=== PATIENT | male | born 1940 | race Caucasian/White ===

== ENCOUNTER 2020-01-01 09:18 | Outpatient (REF) | payer MEDICARE, SELFPAY ==
[2020-01-01 11:31] LABS: Cholesterol 175 mg/dL; HDL Cholesterol 60 mg/dL; LDL Cholesterol Calculated 90 mg/dl; Triglycerides 127 mg/dL
[2020-01-01 13:37] LABS: Thyroid Stimulating Hormone 4.21 uIU/mL (0.32-4.0)
== END 2020-01-01 09:19 | disposition home or self-care (01) ==
LOC: HO.HMGCLDS 09:18
PROVIDERS: PCP Internal Medicine; Visit Provider Internal Medicine
DX: E03.9 Hypothyroidism, unspecified (principal)
CPT/HCPCS: 80061; 84443

== ENCOUNTER 2020-03-17 11:13 | Outpatient (REF) | payer MEDICARE, SELFPAY ==
--- NOTE | 2020-03-19 13:10 | MHC.AU.P13 ---
Adult Audiological Evaluation Date of Visit: 03/17/20 Package Handler Used: Not Applicable Reason for Appointment: Audiologic re-evaluation due to perceived change in hearing, particularly for the left ear. 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, with the left ear thresholds being poorer with conductive components noted Ear History: Bothersome Tinnitus/Ringing/Noises in Ears: Both Ears History of occupational noise exposure?: Yes Medical History: Medical History: Thyroid Disease Other Medical History: High cholesterol History of fluctuating middle ear dysfunction Medication List: Levothyroxine, Simvastatin Hearing Instrument History- Right Ear: Structural Steel Equipment Erector: [employer] Model: Appotao V 70-312 canal Serial Number: [id number] Battery Size: 312 Repair Warranty: 02/25/2019 Loss and Damage Warranty: 02/25/2019 Dispensed By: [facility] Date of Fittin02/03/2016 Hearing Instrument History- Left Ear: Structural Steel Equipment Erector: Phonak Model: Appotao V 70-312 canal Serial Number: [id number] Battery Size: 312 Warranty: 02/25/2019 Loss and Damage Warranty: 02/25/2019 Dispensed By: [facility] Date of Fittin02/03/2016 Otoscopy: Right Ear: Unremarkable Left Ear: Unremarkable Tympanometry: Tympanometry performed due to: History of fluctuating middle ear dysfunction, left ear greater than right Right Ear: Non-compliant Middle Ear System (Type B) Left Ear: Non-compliant Middle Ear System (Type B) Hearing Evaluation: Transducer(s) Used: Insert Earphones Bone Conduction Method: Conventional Audiometry Stimuli Used: Pure Tones Right Ear: Description of Hearing: Moderate dropping to profound sensorineural hearing loss Left Ear: Description of Hearing: 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 Middle ear dysfunction persists bilaterally. Compared to most recent evaluation: Interpretation of Results: Recommendations: Audiological re-evaluation in one year. Hearing aid(s) reprogrammed with updated test results. Diagnosis: Primary Diagnosis: H90.3 Bilateral Sensorineural Hearing Loss Secondary Diagnosis: H69.93 Unspecified Eustachian Tube Dysfunction, Bilateral Services Performed: Comprehensive Audiological Evaluation (CPT 09688) Tympanometry (CPT 65733) Signature: Student/Clinical Fellow: I have reviewed/agreed with student/fellow documentation: Provider: Italo Kruger, CCC-A
--- NOTE | 2020-03-19 13:16 | MHC.AU.P13 ---
Adult Audiological Evaluation Date of Visit: 03/17/20 Notch Machine Operator Used: Not Applicable Reason for Appointment: Audiologic re-evaluation due to perceived change in hearing, particularly for the left ear. 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, with the left ear thresholds being poorer with conductive components noted Ear History: Bothersome Tinnitus/Ringing/Noises in Ears: Both Ears History of occupational noise exposure?: Yes Medical History: Medical History: Thyroid Disease Other Medical History: High cholesterol History of fluctuating middle ear dysfunction, left ear greater than right Medication List: Levothyroxine, Simvastatin Hearing Instrument History- Right Ear: Jewel Oliving Machine Operator: Phonak Model: tamycao V 70-312 canal Serial Number: [id number] Battery Size: 312 Repair Warranty: 02/25/2019 Loss and Damage Warranty: 02/25/2019 Dispensed By: [facility] Date of Fittin02/03/2016 Hearing Instrument History- Left Ear: Jewel Oliving Machine Operator: Phonak Model: tamycao V 70-312 canal Serial Number: [id number] Battery Size: 312 Warranty: 02/25/2019 Loss and Damage Warranty: 02/25/2019 Dispensed By: [facility] Date of Fittin02/03/2016 Otoscopy: Right Ear: Unremarkable Left Ear: Unremarkable Tympanometry: Tympanometry performed due to: Hsitory of fluctuating middle ear dysfunction, left ear greater than right Right Ear: Non-compliant Middle Ear System (Type B) Left Ear: Non-compliant Middle Ear System (Type B) Hearing Evaluation: Transducer(s) Used: Insert Earphones Bone Conduction Method: Conventional Audiometry Stimuli Used: Pure Tones Right Ear: Description of Hearing: Moderate dropping to profound sensorineural hearing loss Left Ear: Description of Hearing: 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 Middle ear dysfunction persists bilaterally. Compared to most recent evaluation: Question if the continued middle ear dysfunction may relate to the increased hearing loss. Recommendations: Audiological re-evaluation in one year. Hearing aid(s) reprogrammed with updated test results. Diagnosis: Primary Diagnosis: H90.3 Bilateral Sensorineural Hearing Loss Secondary Diagnosis: H69.93 Unspecified Eustachian Tube Dysfunction, Bilateral Services Performed: Comprehensive Audiological Evaluation (CPT 99484) Tympanometry (CPT 33369) Signature: Provider: Italo Kruger, [place]-A
== END 2020-03-17 11:14 | disposition home or self-care (01) ==
LOC: HO.SH 11:13
PROVIDERS: Visit Provider Internal Medicine
DX: H90.3 Sensorineural hearing loss, bilateral (principal); H69.93 Unspecified Eustachian tube disorder, bilateral
CPT/HCPCS: 92557; 92567

== ENCOUNTER 2020-05-04 09:51 | Outpatient (REF) | payer MEDICARE, SELFPAY ==
[2020-05-04 11:56] LABS: Cholesterol 168 mg/dL; HDL Cholesterol 56 mg/dL; LDL Cholesterol Calculated 77 mg/dl; Triglycerides 179 mg/dL
[2020-05-04 12:18] LABS: Thyroid Stimulating Hormone 2.12 uIU/mL (0.32-4.0)
== END 2020-05-04 09:52 | disposition home or self-care (01) ==
LOC: HO.HMGCLDS 09:51
PROVIDERS: PCP Internal Medicine; Visit Provider Internal Medicine
DX: E11.9 Type 2 diabetes mellitus without complications (principal); E03.9 Hypothyroidism, unspecified
CPT/HCPCS: 36415; 80061; 84443

== ENCOUNTER 2020-06-18 10:58 | Outpatient (REF) | payer SELFPAY ==
--- NOTE | 2020-06-18 11:35 | MHC.AU.P13 ---
Hearing Instrument Problem Date of Visit: 06/18/20 Right Ear: Head Doffer: Phonak Model: Virto V 70-312 canal Serial Number: [id number] Repair Warranty: 02/25/2019 Loss and Damage Warranty: 02/25/2019 Battery Size: 312 Color: pink Type of Wax Guard: CeruStop Left Ear: Head Doffer: Phonak Model: Virto V 70-312 canal Serial Number: [id number] Repair Warranty: 02/25/2019 Loss and Damage Warranty: 02/25/2019 Battery Size: 312 Color: pink Type of Wax Guard: CeruStop Follow-Up Summary: Patient brought in left aid - feels not enough volume. Cleaned and replaced wax guard, however, aid is still very weak. Sending to [employer] for repair. Quoted $315.00 Recommendations: Recommendations: Patient will be contacted when materials have arrived. Signature: Provider: MK Calhoun-
== END 2020-06-18 10:59 | disposition home or self-care (01) ==
LOC: HO.HAP 10:58
PROVIDERS: Visit Provider Internal Medicine
DX: Z13.89 Encounter for screening for other disorder (principal)

== ENCOUNTER 2020-06-29 14:38 | Outpatient (REF) | payer MEDICARE, SELFPAY | END 2020-06-29 14:39 | disposition home or self-care (01) | LOC: HO.HAP 14:38 | PROVIDERS: Visit Provider Internal Medicine | DX: Z46.1 Encounter for fitting and adjustment of hearing aid (principal); H90.3 Sensorineural hearing loss, bilateral | CPT/HCPCS: V5014 ==

== ENCOUNTER 2020-10-07 09:05 | Outpatient (REF) | payer MEDICARE, SELFPAY ==
[2020-10-07 11:02] LABS: MANUAL DIFF FLAG NO
[2020-10-07 11:25] LABS: Basophils Percent Auto 0.5 % (0-2); Eosinophils Absolute Auto 0.3 X10*3/uL (0.0-0.4); Eosinophils Percent Auto 3.4 % (0-4); Hematocrit 41.1 % (42-52); Hemoglobin 13.5 g/dl (14.0-18.0); Imm Gran Abs Auto 0.01 X10*3/uL (0.00-0.03); Imm Gran Pct Auto 0.1 % (0.0-0.4); Lymphocytes Absolute Auto 3.3 X10*3/uL (1.2-4.9); Lymphocytes Percent Auto 44.7 % (20-40); Mean Corpuscular HGB Conc 32.8 g/dl (31.0-36.0); Mean Corpuscular Hemoglobin 31.2 pg (27.0-33.0); Mean Corpuscular Volume 94.9 fL (80-98); Mean Platelet Volume 10.7 fL (9.4-12.4); Monocytes Absolute Auto 0.6 X10*3/uL (0.1-1.2); Monocytes Percent Auto 8.1 % (2-11); Neutrophils Absolute Auto 3.2 X10*3/uL (2.0-8.3); Neutrophils Percent Auto 43.2 % (45-73); Platelet Count 187 X10*3/uL (160-400); Red Blood Count 4.33 X10*6/uL (4.60-5.80); Red Cell Distribution Width 12.3 % (11.0-16.0); White Blood Count 7.4 X10*3/uL (4.8-10.8)
[2020-10-07 12:19] LABS: Alanine Aminotransferase 25 U/L (0-40); Albumin Level 4.6 g/dL (3.5-5.0); Alkaline Phosphatase 80 U/L (39-117); Anion Gap 16 (12-20); Aspartate Amino Transferase 22 U/L (5-37); Bilirubin Total 1.3 mg/dL (0.0-1.0); Blood Urea Nitrogen 24 mg/dL (9-16); Calcium 9.6 mg/dL (8.4-10.2); Carbon Dioxide 25 mmol/L (22-29); Chloride 105 mmol/L (96-108); Cholesterol 177 mg/dL; Estimated Glomerular Filt Rate > 60; Glucose Fasting 90 mg/dL (60-99); HDL Cholesterol 47 mg/dL; LDL Cholesterol Calculated 94 mg/dl; Sodium 141 mmol/L (135-145); Total Protein 7.2 g/dL (6.5-8.0); Triglycerides 184 mg/dL
[2020-10-07 12:23] LABS: Thyroid Stimulating Hormone 6.06 uIU/mL (0.32-4.0)
== END 2020-10-07 09:06 | disposition home or self-care (01) ==
LOC: HO.HMGCLDS 09:05
PROVIDERS: PCP Internal Medicine; Visit Provider Internal Medicine
DX: Z00.00 Encounter for general adult medical examination without abnormal findings (principal); E11.9 Type 2 diabetes mellitus without complications; E03.9 Hypothyroidism, unspecified
CPT/HCPCS: 36415; 80053; 80061; 84443; 85025

== ENCOUNTER 2021-01-12 09:28 | Outpatient (REF) | payer MEDICARE, SELFPAY ==
[2021-01-12 12:02] LABS: Cholesterol 163 mg/dL; HDL Cholesterol 66 mg/dL; LDL Cholesterol Calculated 71 mg/dl; Triglycerides 134 mg/dL
[2021-01-12 12:11] LABS: Thyroid Stimulating Hormone 4.42 uIU/mL (0.32-4.0)
== END 2021-01-12 09:29 | disposition home or self-care (01) ==
LOC: HO.HMGCLDS 09:28
PROVIDERS: Visit Provider Internal Medicine
DX: E03.9 Hypothyroidism, unspecified (principal); E11.9 Type 2 diabetes mellitus without complications
CPT/HCPCS: 36415; 80061; 84443

== ENCOUNTER 2021-03-24 14:22 | Outpatient (REF) | payer MEDICARE, SELFPAY ==
--- NOTE | 2021-03-29 13:09 | MHC.AU.AHA ---
Adult Audiological Evaluation Date of Visit: 03/24/21 Manager Professional Development Used: Not Applicable Reason for Appointment: Audiologic re-evaluation due to question of change in hearing ability. Faisal has a history of asymmetric hearing loss, but reports he is experiencing even more difficulty, left ear greater than right. Previous Hearing Test Results: 03/17/2020 [facility] Right Ear - Moderate dropping to profound mixed hearing loss with 96% speech understanding at a listening level of 80 dB HL Left Ear - Moderately severe to profound mixed hearing loss with 76% speech discrimination at 85 dB HL. Ear History: Bothersome Tinnitus/Ringing/Noises in Ears: Both Ears History of occupational noise exposure?: Yes Medical History: Medical History: Thyroid Disease, High cholesterol History of fluctuating middle ear dysfunction, left ear greater than right Medication List: Levothyroxine, Simvastatin Hearing Instrument History- Right Ear: [place] Porter: Phonak Model: Virto V 70-312 canal Serial Number: [id number] Battery Size: 312 Repair Warranty: 02/25/2019 Loss and Damage Warranty: 02/25/2019 Dispensed By: [facility] Date of Fittin02/03/2016 Hearing Instrument History- Left Ear: Casino Porter: Phonak Model: Virto V 70-312 canal Serial Number: [id number] Battery Size: 312 Warranty: 07/11/2021 Loss and Damage Warranty: 02/25/2019 Dispensed By: [facility] Date of Fittin02/03/2016 Otoscopy: Right Ear: Unremarkable Left Ear: Unremarkable Tympanometry: Not performed at today's visit Hearing Evaluation: Transducer(s) Used: Insert Earphones Bone Conduction Method: Conventional Audiometry Stimuli Used: Pure Tones Right Ear: Description of Hearing: Moderate dropping to profound mixed hearing loss. 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 Speech Recognition Threshold (SRT): Method Used: Monitored Live Voice Stimuli Used: Spondee Words Right Ear: 55 dB HL Left Ear: 70 dB HL Word Discrimination: Method: Recorded Lists Word Lists Used: NU-6 Right Ear: 96% at 90 dB HL Left Ear: 52% at 95 dB HL 84% at 100 dB HL Most Comfortable Level (MCL): Right Ear: 90 dB HL Left Ear: 95 dB HL Comparison: Right ear thresholds and speech discrimination ability is stable. Left ear thresholds have overall decreased 5-10 dB. Speech understanding improved when speech signal level was increased. Recommendations: Hearing aid maintenance performed today. Hearing aid(s) reprogrammed with updated test results with Faisal noting improved sound quality. Audiological re-evaluation in one year. Will send a reminder card. Diagnosis: Primary Diagnosis: H90.3 Bilateral Sensorineural Hearing Loss Services Performed: Comprehensive Audiological Evaluation (CPT 72740) Signature: Provider: Italo Kruger, [place]-A
== END 2021-03-24 14:23 | disposition home or self-care (01) ==
LOC: HO.SH 14:22
PROVIDERS: Visit Provider Internal Medicine
DX: Z01.118 Encounter for examination of ears and hearing with other abnormal findings (principal); H90.3 Sensorineural hearing loss, bilateral
CPT/HCPCS: 92557

== ENCOUNTER 2021-07-05 09:22 | Outpatient (REF) | payer MEDICARE, SELFPAY ==
[2021-07-05 12:11] LABS: Cholesterol 157 mg/dL; HDL Cholesterol 64 mg/dL; LDL Cholesterol Calculated 71 mg/dl; Thyroid Stimulating Hormone 4.59 uIU/mL (0.32-4.0); Triglycerides 113 mg/dL
== END 2021-07-05 09:23 | disposition home or self-care (01) ==
LOC: HO.HMGCLDS 09:22
PROVIDERS: Visit Provider Internal Medicine
DX: Z00.00 Encounter for general adult medical examination without abnormal findings (principal); E03.9 Hypothyroidism, unspecified
CPT/HCPCS: 36415; 80061; 84443

== ENCOUNTER 2021-07-27 11:05 | Outpatient (REF) | payer SELFPAY | END 2021-07-27 11:06 | disposition home or self-care (01) | LOC: HO.HAP 11:05 | PROVIDERS: Visit Provider Internal Medicine | DX: Z13.89 Encounter for screening for other disorder (principal) ==

== ENCOUNTER 2021-08-24 11:06 | Outpatient (REF) | payer SELFPAY | END 2021-08-24 11:07 | disposition home or self-care (01) | LOC: HO.HAP 11:06 | PROVIDERS: Visit Provider Internal Medicine | DX: Z13.89 Encounter for screening for other disorder (principal) ==

== ENCOUNTER 2021-09-10 10:59 | Outpatient (REF) | payer SELFPAY | END 2021-09-10 11:00 | disposition home or self-care (01) | LOC: HO.HAP 10:59 | PROVIDERS: Visit Provider Internal Medicine | DX: Z46.1 Encounter for fitting and adjustment of hearing aid (principal) | CPT/HCPCS: V5014 ==

== ENCOUNTER 2021-11-09 08:52 | Outpatient (REF) | payer MEDICARE, SELFPAY ==
[2021-11-09 11:51] LABS: MANUAL DIFF FLAG NO
[2021-11-09 12:06] LABS: Basophils Percent Auto 0.7 % (0-2); Eosinophils Absolute Auto 0.4 X10*3/uL (0.0-0.4); Eosinophils Percent Auto 6.7 % (0-4); Hematocrit 41.6 % (42.0-52.0); Hemoglobin 13.8 g/dl (14.0-18.0); Imm Gran Abs Auto 0.01 X10*3/uL (0.00-0.03); Imm Gran Pct Auto 0.2 % (0.0-0.4); Lymphocytes Absolute Auto 2.6 X10*3/uL (1.2-4.9); Lymphocytes Percent Auto 42.7 % (20-40); Mean Corpuscular HGB Conc 33.2 g/dl (31.0-36.0); Mean Corpuscular Hemoglobin 31.6 pg (27.0-33.0); Mean Corpuscular Volume 95.2 fL (80.0-98.0); Monocytes Absolute Auto 0.5 X10*3/uL (0.1-1.2); Monocytes Percent Auto 8.5 % (2-11); Neutrophils Absolute Auto 2.5 x10*3/uL (2.0-8.3); Neutrophils Percent Auto 41.2 % (45-73); Platelet Count 194 X10*3/uL (160-400); Red Blood Count 4.37 X10*6/uL (4.60-5.80); Red Cell Distribution Width 12.4 % (11.0-16.0)
[2021-11-09 12:50] LABS: Alanine Aminotransferase 21 U/L (0-40); Albumin Level 4.5 g/dL (3.5-5.0); Alkaline Phosphatase 77 U/L (39-117); Anion Gap 15 (12-20); Aspartate Amino Transferase 22 U/L (5-37); Bilirubin Total 0.9 mg/dL (0.0-1.0); Blood Urea Nitrogen 25 mg/dL (9-16); Calcium 9.6 mg/dL (8.4-10.2); Carbon Dioxide 25 mmol/L (22-29); Chloride 107 mmol/L (96-108); Cholesterol 171 mg/dL; Estimated Glomerular Filt Rate > 60; Glucose Fasting 97 mg/dL (60-99); HDL Cholesterol 59 mg/dL; LDL Cholesterol Calculated 95 mg/dl; Potassium 4.8 mmol/L (3.3-5.1); Sodium 142 mmol/L (135-145); Total Protein 6.9 g/dL (6.5-8.0); Triglycerides 86 mg/dL
[2021-11-09 13:14] LABS: Thyroid Stimulating Hormone 1.78 uIU/mL (0.32-4.0)
== END 2021-11-09 08:53 | disposition home or self-care (01) ==
LOC: HO.HMGCLDS 08:52
PROVIDERS: PCP Internal Medicine; Visit Provider Internal Medicine
DX: Z00.00 Encounter for general adult medical examination without abnormal findings (principal); Z13.0 Encounter for screening for diseases of the blood and blood-forming organs and certain disorders involving the immune mechanism
CPT/HCPCS: 36415; 80053; 80061; 84443; 85025

== ENCOUNTER 2022-02-18 13:47 | Outpatient (REF) | payer MEDICARE, SELFPAY ==
--- NOTE | 2022-02-18 14:30 | MHC.AU.HA3 ---
Hearing Instrument Follow-Up- Binaural Date of Visit: 02/18/22 Right Ear: Make, Model, Color, Serial Number: Gladis Goodman [id number] SN: [id number] Color: [place] Switcher Repair Warranty: 03/10/2022 Switcher Loss and Damage Warranty: 02/25/2019 Battery Size: 312 Type of Wax Guard: CeruStop Dispensed By: [facility] Date of Fittin02/03/2016 Left Ear: Make, Model, Color, Serial Number: Gladis Goodman [id number] SN: [id number] Color: [place] Switcher Repair Warranty: 07/11/2021 Switcher Loss and Damage Warranty: 02/25/2019 Battery Size: 312 Type of Wax Guard: CeruStop Dispensed By: [facility] Date of Fittin02/03/2016 Follow-Up Summary: Faisal dropped off his right hearing aid reporting that it is not working. Upon inspection, hearing aid turns on but does not amplify/weak. No improvement with cleaning, vacuuming microphones, and changing wax guard. Sent hearing aid for in-warranty check writer salesperson repair. Left a voicemail for Faisal informing him of findings. Recommendations: Patient will be contacted when materials have arrived. Diagnosis Code(s): Primary Diagnosis: H90.3 Bilateral Sensorineural Hearing Loss Signature: Provider: Mamie Samuels, [facility]
== END 2022-02-18 13:48 | disposition home or self-care (01) ==
LOC: HO.HAP 13:47
PROVIDERS: Visit Provider Internal Medicine
DX: Z13.89 Encounter for screening for other disorder (principal)

== ENCOUNTER 2022-03-04 10:02 | Outpatient (REF) | payer SELFPAY ==
--- NOTE | 2022-03-04 10:38 | MHC.AU.HA3 ---
Hearing Instrument Follow-Up- Binaural Date of Visit: 03/04/22 Right Ear: Make, Model, Color, Serial Number: Gladis Bermudezo [id number] SN: [id number] Color: [place] Mechanical Repair Worker Repair Warranty: 03/10/2022 Mechanical Repair Worker Loss and Damage Warranty: 02/25/2019 Battery Size: 312 Type of Wax Guard: CeruStop Dispensed By: [facility] Date of Fittin02/03/2016 Left Ear: Make, Model, Color, Serial Number: Gladis Bermudezo [id number] SN: [id number] Color: [place] Mechanical Repair Worker Repair Warranty: 07/11/2021 Mechanical Repair Worker Loss and Damage Warranty: 02/25/2019 Battery Size: 312 Type of Wax Guard: CeruStop Dispensed By: [facility] Date of Fittin02/03/2016 Follow-Up Summary: Faisal picked up his repaired right hearing aid. Reprogrammed to settings from March 2021 and reconnected to left hearing aid via [employer] software. Faisal reported overall volume was slightly loud but comfortable. Briefly discussed new hearing aids due to age of his current pair. Faisal will consider options (reportedly has [employer] benefit through insurance) and will schedule an updated hearing test and hearing aid consultation if/when he is ready to pursue new hearing aids. Recommendations: Hearing instrument maintenance in 6 months, or sooner if needed. Please contact our clinic with any questions or concerns. Diagnosis Code(s): Primary Diagnosis: H90.6 Mixed Hearing Loss, Bilateral Signature: Provider: Mamie Samuels, [facility]
== END 2022-03-04 10:03 | disposition home or self-care (01) ==
LOC: HO.HAP 10:02
PROVIDERS: Visit Provider Internal Medicine
DX: Z13.89 Encounter for screening for other disorder (principal)

== ENCOUNTER 2022-03-14 08:26 | Outpatient (REF) | payer MEDICARE, SELFPAY ==
[2022-03-14 14:04] LABS: Cholesterol 172 mg/dL; HDL Cholesterol 63 mg/dL; LDL Cholesterol Calculated 87 mg/dl; Thyroid Stimulating Hormone 4.71 uIU/mL (0.32-4.0); Triglycerides 112 mg/dL
== END 2022-03-14 08:27 | disposition home or self-care (01) ==
LOC: HO.HMGCLDS 08:26
PROVIDERS: PCP Internal Medicine; Visit Provider Internal Medicine
DX: E03.9 Hypothyroidism, unspecified (principal); E78.5 Hyperlipidemia, unspecified
CPT/HCPCS: 36415; 80061; 84443

== ENCOUNTER 2022-07-08 09:32 | Outpatient (REF) | payer MEDICARE, SELFPAY ==
[2022-07-08 12:41] LABS: Thyroid Stimulating Hormone 2.39 uIU/mL (0.32-4.0)
== END 2022-07-08 09:33 | disposition home or self-care (01) ==
LOC: HO.HMGCLDS 09:32
PROVIDERS: PCP Internal Medicine; Visit Provider Internal Medicine
DX: E03.9 Hypothyroidism, unspecified (principal)
CPT/HCPCS: 36415; 84443

== ENCOUNTER 2022-11-08 11:15 | Outpatient (REF) | payer MEDICARE, SELFPAY ==
[2022-11-08 13:55] LABS: Cholesterol 165 mg/dL (<200); HDL Cholesterol 58 mg/dL (>40); LDL Cholesterol Calculated 73 mg/dL (<100); Triglycerides 172 mg/dL (<150)
== END 2022-11-08 11:16 | disposition home or self-care (01) ==
LOC: HO.HMGCLDS 11:15
PROVIDERS: PCP Internal Medicine; Visit Provider Internal Medicine
DX: E78.5 Hyperlipidemia, unspecified (principal)
CPT/HCPCS: 36415; 80061

== ENCOUNTER 2022-11-15 12:49 | Outpatient (AMB) | payer MEDICARE, SELFPAY ==
[2022-11-15 12:50] VITALS: BP 122/60; PULSE 65; O2SAT 98; BMI 25.8
--- NOTE | 2022-11-15 12:50 | MHC.PC.OV ---
Vital Signs 11/15/22 12:50 Height 6 ft Weight 190 lb BMI 25.8 BP 122/60 Blood Pressure Location Rt brachial Position Sitting Pulse 65 Pulse Source Pulse Oximeter Pulse Oximetry (%) 98 Oxygen Delivery Method Room Air Intake Visit Reasons: 4mth f/u Allergies No Known Allergies Allergy (Verified 11/15/22 12:51) Medication List - Last Reconciled 11/15/22 by Cecil Whalen MD cetirizine (Zyrtec) 10 mg PO DAILY PRN levothyroxine 125 mcg PO DAILY simvastatin 20 mg PO BEDTIME tadalafil 2.5 mg PO DAILY PRN 90 days Tobacco use date assessed: 03/18/22 Fall risk assessment: No Falls in past year Last assessed Fall Risk: 11/15/22 Dental Screening Dental Screen Date: 11/15/22 Did you have a dental visit in the last 12 months?: Yes Did you have a dental problem in the last 6 months where you did not have access to dental care?: No Was dental information given to patient?: Patient has dentist HPI 4mth f/u HPI Details hypothyroidism and hyperlipidemia; stable on rx; compliant [facility] Medical History Erectile dysfunction Hypothyroidism Hyperlipidemia Surgical History History of dental surgery History of ear surgery History of cataract surgery Family History Father Lung cancer Mother No problems noted. Family/Other Hypertension Lung cancer Social History Housing: House Alcohol intake: current Alcohol intake frequency: holidays/special occasions only Patient Tobacco Use Status: Former Tobacco user Tobacco use type: Cigarette e-Cigarette/Vaping Use: Never Used Second Hand Smoke Exposure: No service: Yes ([employer]) Current occupational status: retired Cognitive needs: No Hearing needs: Yes (hearing aide) Vision needs: Yes (glasses) Questionnaire PHQ-9 Over the last 2 weeks, how often have you been bothered by any of the following problems? 1. Little interest or pleasure in doing things: not at all 2. Feeling down, depressed, or hopeless: not at all 3. Trouble falling or staying asleep, or sleeping too much: not at all 4. Feeling tired or having little energy: not at all 5. Poor appetite or overeating: not at all 6. Feeling bad about yourself - or that you are a failure or have let yourself or your family down: not at all 7. Trouble concentrating on things, such as reading the newspaper or watching television: not at all 8. Moving or speaking so slowly that other people could have noticed. Or the opposite - being so fidgety or restless that you have been moving around a lot more than usual: not at all 9. Thoughts that you would be better off or of hurting yourself in some way: not at all Total score: 0 Depression Screening Interpretation: Negative 37367 - PHQ-9 Billing: Yes Source: Developed by Drs. Faisal Madrid, Rubina Hamilton, Evgeny Mcdonnell and colleagues, with an educational jocy from [employer]. Thrive Questionnaire Date Thrive assessed: 03/18/22 AUDIT C Alcohol Use Questionnaire (AUDIT-C) 1. How often do you have a drink containing alcohol?: Monthly or less Total Score: 1 ALEE-7 AMB Questionnaire ALEE-7 Date ALEE - 7 assessed: 03/18/22 Source: Developed by Drs. Faisal Madrid, Rubina Hamilton, Evgeny Mcdonnell and colleagues, with an educational jocy from [employer]. Review of Systems Const Denies chills, Denies headache(s) and Denies weight loss ENT Denies headache(s) Card Denies chest pain, Denies syncope, Denies irregular heart rhythm and Denies dyspnea Resp Denies chest congestion, Denies cough and Denies dyspnea GI Denies abdominal pain, Denies change in stool character, Denies nausea and Denies vomiting Musc Denies deformity and Denies joint swelling Neuro Denies syncope and Denies headache(s) Physical exam (Primary Care) Vital Signs: Last Vital Signs Pulse 65 11/15/22 12:50 BP 122/60 11/15/22 12:50 Pulse Ox 98 11/15/22 12:50 Oxygen Delivery Method Room Air 11/15/22 12:50 BMI result Body Mass Index 25.8 Tobacco/Smoking Status: Tobacco use Status Tobacco use date assessed 03/18/22 11/15/22 12:51 Patient Tobacco Use Status Former Tobacco user 11/15/22 12:51 Tobacco use type Cigarette 11/15/22 12:51 e-Cigarette/Vaping Use Never Used 11/15/22 12:51 PHQ-9: PHQ-9 Score PHQ-9: Total score 0 11/15/22 13:17 Depression Screening Interpretation: Negative Thrive Assessment: Date of Thrive Assessment Date Thrive assessed 03/18/22 11/15/22 12:51 Const General: cooperative, comfortable, no acute distress and alert Neck Neck: Yes no lymphadenopathy Thyroid: Thyroid normal Resp Effort & Inspection: normal respiratory effort Auscultation: clear to auscultation bilaterally Percussion: percussion normal Cardio Jugular venous distension: no JVD Palpation: normal PMI Rate: regular rate Rhythm: regular rhythm Heart sounds: S1 normal heart sound present and S2 normal heart sound present GI Inspection: Yes normal to inspection Palpation (GI): No hepatosplenomegaly present Skin General skin exam: no rashes or lesions noted Extrem General: Yes no clubbing, cyanosis or edema Assessment and Plan Assessment & Plan (1) Hypothyroidism: Code(s): E03.9 - Hypothyroidism, unspecified Plan: stable; same rx; do labs (2) Hyperlipidemia: Code(s): E78.5 - Hyperlipidemia, unspecified Plan: stable; same rx Orders: Orders Lipid Panel Today E78.5 - Hyperlipidemia, unspecified Thyroid Stimulating Hormone Today E03.9 - Hypothyroidism, unspecified Coding Level of Care Code Est Pt Level 3 (68242) Diagnoses Hypothyroidism E03.9 Hyperlipidemia E78.5
== END 2022-11-15 13:14 | disposition home or self-care (01) ==
PROVIDERS: Visit Provider Internal Medicine
DX: E03.9 Hypothyroidism, unspecified (principal); E78.5 Hyperlipidemia, unspecified
CPT/HCPCS: 99213

== ENCOUNTER 2023-02-27 10:05 | Outpatient (REF) | payer MEDICARE, SELFPAY | END 2023-02-27 10:06 | disposition home or self-care (01) | LOC: HO.HMGCLDS 10:05 | PROVIDERS: PCP Internal Medicine; Visit Provider Internal Medicine | DX: E03.9 Hypothyroidism, unspecified (principal); E78.5 Hyperlipidemia, unspecified | CPT/HCPCS: 36415; 80061; 84443 ==

== ENCOUNTER 2023-03-08 11:13 | Outpatient (AMB) | payer MEDICARE, SELFPAY ==
[2023-03-08 11:15] VITALS: BP 144/72; PULSE 60; O2SAT 98; BMI 26.2
--- NOTE | 2023-03-08 11:15 | A.OFFPC_ITS ---
Vital Signs 03/08/23 11:15 Height 6 ft Weight 193 lb BMI 26.2 BP 144/72 H Blood Pressure Location Lt brachial Position Sitting Pulse 60 Pulse Source Pulse Oximeter Pulse Oximetry (%) 98 Oxygen Delivery Method Room Air Intake Visit Reasons: 4 mth f/u [place] Erector Helper Required: No Splicing Machine Operator Automatic: Not Required per policy Accompanied by: Self / Same As Patient Allergies No Known Allergies Allergy (Verified 03/08/23 11:16) Medication List - Last Reconciled 03/08/23 by Cecil Whalen MD cetirizine (Zyrtec) 10 mg PO DAILY PRN levothyroxine 125 mcg PO DAILY simvastatin 20 mg PO BEDTIME tadalafil 2.5 mg PO DAILY PRN 90 days Tobacco use date assessed: 03/08/23 Fall risk assessment: No Falls in past year Last assessed Fall Risk: 03/08/23 Dental Screening Dental Screen Date: 03/08/23 Did you have a dental visit in the last 12 months?: Yes Did you have a dental problem in the last 6 months where you did not have access to dental care?: No Was dental information given to patient?: Patient has dentist HPI 4 mth f/u HPI Details Hypothyr on rx; doing well PFSH Medical History Erectile dysfunction Hypothyroidism Hyperlipidemia Surgical History History of dental surgery History of ear surgery History of cataract surgery Family History Father Lung cancer Mother No problems noted. Family/Other Hypertension Lung cancer Social History Housing: House Alcohol intake: current Alcohol intake frequency: holidays/special occasions only Patient Tobacco Use Status: Former Tobacco user Tobacco use type: Cigarette e-Cigarette/Vaping Use: Never Used Second Hand Smoke Exposure: No service: Yes ([employer]) Current occupational status: retired Cognitive needs: No Hearing needs: Yes (hearing aide) Vision needs: Yes (glasses) Questionnaire PHQ-9 Over the last 2 weeks, how often have you been bothered by any of the following problems? 1. Little interest or pleasure in doing things: not at all 2. Feeling down, depressed, or hopeless: not at all 3. Trouble falling or staying asleep, or sleeping too much: not at all 4. Feeling tired or having little energy: not at all 5. Poor appetite or overeating: not at all 6. Feeling bad about yourself - or that you are a failure or have let yourself or your family down: not at all 7. Trouble concentrating on things, such as reading the newspaper or watching television: not at all 8. Moving or speaking so slowly that other people could have noticed. Or the opposite - being so fidgety or restless that you have been moving around a lot more than usual: not at all 9. Thoughts that you would be better off or of hurting yourself in some way: not at all Total score: 0 Depression Screening Interpretation: Negative Depression Screening Done: Yes 49751 - PHQ-9 Billing: Yes Source: Developed by Drs. Faisal Madrid, Rubina Hamilton, Evgeny Mcdonnell and colleagues, with an educational jocy from [employer]. Thrive Questionnaire Date Thrive assessed: 03/08/23 I am a: Patient What is your living situation today?: I have a steady place to live Within the past 12 months, did the food you bought not last and you didn't have the money to get more?: Never true Within the past 12 months, did you worry whether your food would run out before you got money to buy more?: Never true Do you have trouble paying for medicines?: No Do you have trouble getting transportation to medical appointments?: No Do you have trouble paying your heating and electricity bill?: No Do you have trouble taking care of your child, family member or friend?: No Do you have trouble with day-to-day activities such as bathing, preparing meals, shopping, managing finances, etc.?: No Are you currently unemployed and looking for a job?: No Are you interested in more education?: No Please select the resources that you would like help with: None AUDIT C Alcohol Use Questionnaire (AUDIT-C) 1. How often do you have a drink containing alcohol?: Monthly or less Total Score: 1 ALEE-7 AMB Questionnaire ALEE-7 Date ALEE - 7 assessed: 03/08/23 Feeling nervous, anxious, or on edge: 0 = Not at all Not being able to stop or control worryin = Not at all Worrying too much about different things: 0 = Not at all Trouble relaxin = Not at all Being so restless that it is hard to sit still: 0 = Not at all Becoming easily annoyed or irritable: 0 = Not at all Feeling afraid as if something awful might happen: 0 = Not at all Total ALEE-7 score (0-4 normal; 5-9 mild; 10-14 moderate; 15-21 severe): 0 Source: Developed by Drs. Faisal Madrid, Rubina Hamilton, Evgeny Mcdonnell and colleagues, with an educational jocy from [employer]. ALEE-7 Assessment Billing ALEE-7 Assessment Tool: ALEE-7 Assessment 61949 Review of Systems Const Denies chills, Denies headache(s) and Denies weight loss ENT Denies headache(s) Card Denies chest pain, Denies syncope, Denies irregular heart rhythm and Denies dyspnea Resp Denies chest congestion, Denies cough and Denies dyspnea GI Denies abdominal pain, Denies change in stool character, Denies nausea and Denies vomiting Musc Denies deformity and Denies joint swelling Neuro Denies syncope and Denies headache(s) Physical exam (Primary Care) Vital Signs: Last Vital Signs Pulse 60 03/08/23 11:15 BP 144/72 H 03/08/23 11:15 Pulse Ox 98 03/08/23 11:15 Oxygen Delivery Method Room Air 03/08/23 11:15 BMI result Body Mass Index 26.2 Tobacco/Smoking Status: Tobacco use Status Tobacco use date assessed 03/08/23 03/08/23 11:20 Patient Tobacco Use Status Former Tobacco user 03/08/23 11:20 Tobacco use type Cigarette 03/08/23 11:20 e-Cigarette/Vaping Use Never Used 03/08/23 11:20 PHQ-9: PHQ-9 Score PHQ-9: Total score 0 03/08/23 11:20 Depression Screening Interpretation: Negative Thrive Assessment: Date of Thrive Assessment Date Thrive assessed 03/08/23 03/08/23 11:20 Const General: cooperative, comfortable, no acute distress and alert Neck Neck: Yes no lymphadenopathy Thyroid: Thyroid normal Resp Effort & Inspection: normal respiratory effort Auscultation: clear to auscultation bilaterally Percussion: percussion normal Cardio Jugular venous distension: no JVD Palpation: normal PMI Rate: regular rate Rhythm: regular rhythm Heart sounds: S1 normal heart sound present and S2 normal heart sound present GI Inspection: Yes normal to inspection Palpation (GI): No hepatosplenomegaly present Skin General skin exam: no rashes or lesions noted Extrem General: Yes no clubbing, cyanosis or edema Assessment and Plan Assessment & Plan (1) Hypothyroidism: Code(s): E03.9 - Hypothyroidism, unspecified Plan: stable; same rx Orders: Orders Lipid Panel Today E78.5 - Hyperlipidemia, unspecified Thyroid Stimulating Hormone Today E03.9 - Hypothyroidism, unspecified Coding Level of Care Code Est Pt Level 3 (21213) Diagnoses Hypothyroidism E03.9 Additional Codes ALEE-7 Assessment Billing - ALEE-7 Assessment Tool: ALEE-7 Assessment [id number] ([id number])
== END 2023-03-08 11:29 | disposition home or self-care (01) ==
PROVIDERS: PCP Internal Medicine; Visit Provider Internal Medicine
DX: E03.9 Hypothyroidism, unspecified (principal)
CPT/HCPCS: 99213

== ENCOUNTER 2023-06-27 09:04 | Outpatient (REF) | payer MEDICARE, SELFPAY ==
[2023-06-27 10:48] LABS: Cholesterol 159 mg/dL (<200); HDL Cholesterol 57 mg/dL (>40); LDL Cholesterol Calculated 76 mg/dL (<100); Triglycerides 132 mg/dL (<150)
[2023-06-27 10:55] LABS: Thyroid Stimulating Hormone 3.68 uIU/mL (0.32-4.0)
== END 2023-06-27 09:05 | disposition home or self-care (01) ==
LOC: HO.HMGCLDS 09:04
PROVIDERS: PCP Internal Medicine; Visit Provider Internal Medicine
DX: E78.5 Hyperlipidemia, unspecified (principal); E03.9 Hypothyroidism, unspecified
CPT/HCPCS: 36415; 80061; 84443

== ENCOUNTER 2023-06-30 10:35 | Outpatient (AMB) | payer MEDICARE, SELFPAY ==
[2023-06-30 10:40] VITALS: BP 122/56; PULSE 85; O2SAT 97; BMI 26.7
--- NOTE | 2023-06-30 10:40 | MHC.PC.OV ---
Vital Signs 06/30/23 10:40 Height 6 ft Weight 197 lb BMI 26.7 BP 122/56 L Blood Pressure Location Lt brachial Position Sitting Pulse 85 Pulse Source Pulse Oximeter Pulse Oximetry (%) 97 Oxygen Delivery Method Room Air Intake Visit Reasons: 4mth f/u Still Pump Operator Required: No Java Software Architect: Not Required per policy Accompanied by: Self / Same As Patient Allergies No Known Allergies Allergy (Verified 06/30/23 10:40) Medication List - Last Reconciled 06/30/23 by Cecil Whalen MD cetirizine (Zyrtec) 10 mg PO DAILY PRN levothyroxine 125 mcg PO DAILY simvastatin 20 mg PO BEDTIME tadalafil 2.5 mg PO DAILY PRN 90 days Tobacco use date assessed: 03/08/23 Fall risk assessment: No Falls in past year Last assessed Fall Risk: 06/30/23 Dental Screening Dental Screen Date: 03/08/23 HPI 4mt f/u HPI Details hypothyroidism and hyperlipidemia on rx; doing well; [facility] Medical History Erectile dysfunction Hypothyroidism Hyperlipidemia Surgical History History of dental surgery History of ear surgery History of cataract surgery Family History Father Lung cancer Mother No problems noted. Family/Other Hypertension Lung cancer Social History Housing: House Alcohol intake: current Alcohol intake frequency: holidays/special occasions only Patient Tobacco Use Status: Former Tobacco user Tobacco use type: Cigarette e-Cigarette/Vaping Use: Never Used Second Hand Smoke Exposure: No service: Yes ([employer]) Current occupational status: retired Cognitive needs: No Hearing needs: Yes (hearing aide) Vision needs: Yes (glasses) Questionnaire Thrive Questionnaire Date Thrive assessed: 03/08/23 ALEE-7 AMB Questionnaire ALEE-7 Date ALEE - 7 assessed: 03/08/23 Source: Developed by Drs. Faisal Madrid, Rubina Hamilton, Evgeny Mcdonnell and colleagues, with an educational jocy from [employer]. Review of Systems Const Denies chills, Denies headache(s) and Denies weight loss ENT Denies headache(s) Card Denies chest pain, Denies syncope, Denies irregular heart rhythm and Denies dyspnea Resp Denies chest congestion, Denies cough and Denies dyspnea GI Denies abdominal pain, Denies change in stool character, Denies nausea and Denies vomiting Musc Denies deformity and Denies joint swelling Neuro Denies syncope and Denies headache(s) Physical exam (Primary Care) Vital Signs: Last Vital Signs Pulse 85 06/30/23 10:40 BP 122/56 L 06/30/23 10:40 Pulse Ox 97 06/30/23 10:40 Oxygen Delivery Method Room Air 06/30/23 10:40 BMI result Body Mass Index 26.7 Tobacco/Smoking Status: Tobacco use Status Tobacco use date assessed 03/08/23 06/30/23 10:41 Patient Tobacco Use Status Former Tobacco user 06/30/23 10:41 Tobacco use type Cigarette 06/30/23 10:41 e-Cigarette/Vaping Use Never Used 06/30/23 10:41 Thrive Assessment: Date of Thrive Assessment Date Thrive assessed 03/08/23 06/30/23 10:41 Const General: cooperative, comfortable, no acute distress and alert Neck Neck: Yes no lymphadenopathy Thyroid: Thyroid normal Resp Effort & Inspection: normal respiratory effort Auscultation: clear to auscultation bilaterally Percussion: percussion normal Cardio Jugular venous distension: no JVD Palpation: normal PMI Rate: regular rate Rhythm: regular rhythm Heart sounds: S1 normal heart sound present and S2 normal heart sound present GI Inspection: Yes normal to inspection Palpation (GI): No hepatosplenomegaly present Skin General skin exam: no rashes or lesions noted Extrem General: Yes no clubbing, cyanosis or edema Assessment and Plan Assessment & Plan (1) Hypothyroidism: Code(s): E03.9 - Hypothyroidism, unspecified Plan: stable; same rx (2) Hyperlipidemia: Code(s): E78.5 - Hyperlipidemia, unspecified Plan: stable; same rx Orders: Orders Lipid Panel Today Z13.220 - Encounter for screening for lipoid disorders Thyroid Stimulating Hormone Today Z13.29 - Encounter for screening for other suspected endocrine disorder Comprehensive [place]. Panel Fast Today Z13.9 - Encounter for screening, unspecified Complete Blood Count Auto Diff Today Z13.0 - Encounter for screening for diseases of the blood and blood-forming organs and certain disorders involving the immune mechanism Medications: New sildenafil (Viagra) administer 30 minutes to 4 hours before activity 50 mg PO DAILY PRN 20 tabs 2RF sexual activity Discontinued tadalafil administer approximately 30min before sexual activity; do not use more than 1 dose per 24hrs Discontinued Reason: None 2.5 mg PO DAILY 90 days PRN 60 tabs 0RF sexual activity Coding Level of Care Code Est Pt Level 3 (53820) Diagnoses Hypothyroidism E03.9 Hyperlipidemia E78.5
== END 2023-06-30 10:54 | disposition home or self-care (01) ==
PROVIDERS: PCP Internal Medicine; Visit Provider Internal Medicine
DX: E03.9 Hypothyroidism, unspecified (principal); E78.5 Hyperlipidemia, unspecified
CPT/HCPCS: 99213

== ENCOUNTER 2023-10-16 08:55 | Outpatient (REF) | payer MEDICARE, SELFPAY ==
[2023-10-16 10:13] LABS: MANUAL DIFF FLAG NO
[2023-10-16 10:18] LABS: Basophils Percent Auto 0.6 % (0-2); Eosinophils Absolute Auto 0.5 X10*3/uL (0.0-0.4); Hematocrit 41.5 % (42.0-52.0); Imm Gran Abs Auto 0.01 X10*3/uL (0.00-0.03); Imm Gran Pct Auto 0.1 % (0.0-0.4); Lymphocytes Absolute Auto 2.7 X10*3/uL (1.2-4.9); Lymphocytes Percent Auto 39.8 % (20-40); Mean Corpuscular HGB Conc 33.7 g/dl (31.0-36.0); Mean Corpuscular Hemoglobin 32.3 pg (27.0-33.0); Mean Corpuscular Volume 95.6 fL (80.0-98.0); Mean Platelet Volume 10.3 fL (9.4-12.4); Monocytes Absolute Auto 0.7 X10*3/uL (0.1-1.2); Monocytes Percent Auto 9.6 % (2-11); Neutrophils Absolute Auto 2.9 x10*3/uL (2.0-8.3); Neutrophils Percent Auto 42.9 % (45-73); Platelet Count 191 X10*3/uL (160-400); Red Blood Count 4.34 X10*6/uL (4.60-5.80); Red Cell Distribution Width 12.5 % (11.0-16.0); White Blood Count 6.7 X10*3/uL (4.8-10.8)
[2023-10-16 11:25] LABS: Thyroid Stimulating Hormone 2.73 uIU/mL (0.32-4.0)
[2023-10-16 11:27] LABS: Anion Gap 13 (12-20)
[2023-10-16 11:32] LABS: Alanine Aminotransferase 22 U/L (0-40); Albumin Level 4.5 g/dL (3.5-5.0); Alkaline Phosphatase 70 U/L (39-117); Aspartate Amino Transferase 23 U/L (5-37); Bilirubin Total 1.3 mg/dL (0.0-1.0); Blood Urea Nitrogen 30 mg/dL (9-16); Calcium 9.2 mg/dL (8.4-10.2); Carbon Dioxide 22 mmol/L (22-29); Chloride 109 mmol/L (96-108); Cholesterol 173 mg/dL (<200); Estimated Glomerular Filt Rate > 60; Glucose Fasting 90 mg/dL (60-99); HDL Cholesterol 60 mg/dL (>40); LDL Cholesterol Calculated 91 mg/dL (<100); Potassium 4.3 mmol/L (3.3-5.1); Sodium 140 mmol/L (135-145); Total Protein 7.2 g/dL (6.5-8.0); Triglycerides 110 mg/dL (<150)
== END 2023-10-16 08:56 | disposition home or self-care (01) ==
LOC: HO.HMGCLDS 08:55
PROVIDERS: PCP Internal Medicine; Visit Provider Internal Medicine
DX: Z13.0 Encounter for screening for diseases of the blood and blood-forming organs and certain disorders involving the immune mechanism (principal); Z13.220 Encounter for screening for lipoid disorders; Z13.29 Encounter for screening for other suspected endocrine disorder; Z13.9 Encounter for screening, unspecified
CPT/HCPCS: 36415; 80053; 80061; 84443; 85025

== ENCOUNTER 2023-10-31 10:35 | Outpatient (AMB) | payer MEDICARE, SELFPAY ==
[2023-10-31 10:39] VITALS: BP 132/68; PULSE 63; O2SAT 96; BMI 25.8
--- NOTE | 2023-10-31 10:39 | MHC.PC.OV ---
Vital Signs 10/31/23 10:39 Height 6 ft Weight 190 lb BMI 25.8 BP 132/68 Blood Pressure Location Lt brachial Position Sitting Pulse 63 Pulse Source Pulse Oximeter Pulse Oximetry (%) 96 Oxygen Delivery Method Room Air Intake Visit Reasons: 4mt f/u [place] Strap Drum Operator Required: No Accompanied by: Self / Same As Patient Allergies No Known Allergies Allergy (Verified 10/31/23 10:39) Medication List - Last Reconciled 10/31/23 by Cecil Whalen MD levothyroxine 125 mcg PO DAILY sildenafil (Viagra) 50 mg PO DAILY PRN simvastatin 20 mg PO BEDTIME Tobacco use date assessed: 03/08/23 Fall risk assessment: No Falls in past year Last assessed Fall Risk: 10/31/23 Dental Screening Dental Screen Date: 03/08/23 [facility] HPI Details hypothyroidism on rx; doing well and compliant [facility] Medical History Erectile dysfunction Hypothyroidism Hyperlipidemia Surgical History History of dental surgery History of ear surgery History of cataract surgery Family History Father Lung cancer Mother No problems noted. Family/Other Hypertension Lung cancer Social History Housing: House Alcohol intake: current Alcohol intake frequency: holidays/special occasions only Patient Tobacco Use Status: Former Tobacco user Tobacco use type: Cigarette e-Cigarette/Vaping Use: Never Used Second Hand Smoke Exposure: No service: Yes ([employer]) Current occupational status: retired Cognitive needs: No Hearing needs: Yes (hearing aide) Vision needs: Yes (glasses) Questionnaire PHQ-9 Over the last 2 weeks, how often have you been bothered by any of the following problems? 1. Little interest or pleasure in doing things: not at all 2. Feeling down, depressed, or hopeless: not at all 3. Trouble falling or staying asleep, or sleeping too much: not at all 4. Feeling tired or having little energy: not at all 5. Poor appetite or overeating: not at all 6. Feeling bad about yourself - or that you are a failure or have let yourself or your family down: not at all 7. Trouble concentrating on things, such as reading the newspaper or watching television: not at all 8. Moving or speaking so slowly that other people could have noticed. Or the opposite - being so fidgety or restless that you have been moving around a lot more than usual: not at all 9. Thoughts that you would be better off or of hurting yourself in some way: not at all Total score: 0 Depression Screening Interpretation: Negative Depression Screening Done: Yes 41851 - PHQ-9 Billing: Yes Source: Developed by Drs. Faisal Madrid, Rubina Hamilton, Evgeny Mcdonnell and colleagues, with an educational jocy from [employer]. Thrive Questionnaire Date Thrive assessed: 03/08/23 AUDIT C Alcohol Use Questionnaire (AUDIT-C) 1. How often do you have a drink containing alcohol?: Monthly or less Total Score: 1 ALEE-7 AMB Questionnaire ALEE-7 Date ALEE - 7 assessed: 03/08/23 Source: Developed by Drs. Faisal Madrid, Rubina Hamilton, Evgeny Mcdonnell and colleagues, with an educational jocy from [employer]. Review of Systems Const Denies chills, Denies headache(s) and Denies weight loss ENT Denies headache(s) Card Denies chest pain, Denies syncope, Denies irregular heart rhythm and Denies dyspnea Resp Denies chest congestion, Denies cough and Denies dyspnea GI Denies abdominal pain, Denies change in stool character, Denies nausea and Denies vomiting Musc Denies deformity and Denies joint swelling Neuro Denies syncope and Denies headache(s) Physical exam (Primary Care) Vital Signs: Last Vital Signs Pulse 63 10/31/23 10:39 BP 132/68 10/31/23 10:39 Pulse Ox 96 10/31/23 10:39 Oxygen Delivery Method Room Air 10/31/23 10:39 BMI result Body Mass Index 25.8 Tobacco/Smoking Status: Tobacco use Status Tobacco use date assessed 03/08/23 10/31/23 10:43 Patient Tobacco Use Status Former Tobacco user 10/31/23 10:43 Tobacco use type Cigarette 10/31/23 10:43 e-Cigarette/Vaping Use Never Used 10/31/23 10:43 PHQ-9: PHQ-9 Score PHQ-9: Total score 0 10/31/23 10:43 Depression Screening Interpretation: Negative Thrive Assessment: Date of Thrive Assessment Date Thrive assessed 03/08/23 10/31/23 10:43 Const General: cooperative, comfortable, no acute distress and alert Neck Neck: Yes no lymphadenopathy Thyroid: Thyroid normal Resp Effort & Inspection: normal respiratory effort Auscultation: clear to auscultation bilaterally Percussion: percussion normal Cardio Jugular venous distension: no JVD Palpation: normal PMI Rate: regular rate Rhythm: regular rhythm Heart sounds: S1 normal heart sound present and S2 normal heart sound present GI Inspection: Yes normal to inspection Palpation (GI): No hepatosplenomegaly present Skin General skin exam: no rashes or lesions noted Extrem General: Yes no clubbing, cyanosis or edema Assessment and Plan Assessment & Plan (1) Hypothyroidism: Code(s): E03.9 - Hypothyroidism, unspecified Plan: stable; same rx Orders: Orders Lipid Panel Today Z13.220 - Encounter for screening for lipoid disorders XR shoulder LT min 2V Today M25.519 - Pain in unspecified shoulder Thyroid Stimulating Hormone Today Z13.29 - Encounter for screening for other suspected endocrine disorder Coding Level of Care Code Est Pt Level 3 (51927) Diagnoses Hypothyroidism E03.9
== END 2023-10-31 10:50 | disposition home or self-care (01) ==
PROVIDERS: PCP Internal Medicine; Visit Provider Internal Medicine
DX: E03.9 Hypothyroidism, unspecified (principal)
CPT/HCPCS: 99213

== ENCOUNTER 2023-10-31 10:56 | Outpatient (REF) | payer MEDICARE, SELFPAY ==
--- NOTE | ~2023-10-31 | XR_ITS ---
EXAMINATION: XR SHOULDER, LEFT CLINICAL INFORMATION: Pain in left shoulder COMPARISON: None available. TECHNIQUE: AP external rotation, Grashey, scapular Y, and axillary views of the left shoulder. FINDINGS: Mild osteoarthritis of the acromioclavicular joint. Glenohumeral joint normal. Surrounding bones and soft tissues unremarkable. XR/XR shoulder LT min 2V IMPRESSION: Mild osteoarthritis of the acromioclavicular joint. Electronically signed by: Poncho Fox MD 11/15/2023 07:13 AM EDT
== END 2023-10-31 10:57 | disposition home or self-care (01) ==
LOC: HO.XRAY 10:56
PROVIDERS: PCP Internal Medicine; Visit Provider Internal Medicine
DX: M25.512 Pain in left shoulder (principal)
CPT/HCPCS: 73030

== ENCOUNTER → 2024-03-15 11:07 | Outpatient (BNVA) | payer MEDICARE, SELFPAY | PROVIDERS: PCP Internal Medicine; Visit Provider Internal Medicine | DX: E03.9 Hypothyroidism, unspecified (principal) | CPT/HCPCS: 96127; 99212 ==

== ENCOUNTER 2024-06-25 09:26 | Outpatient (REF) | payer MEDICARE, SELFPAY ==
[2024-06-25 13:32] LABS: Appearance Urine Clear; Color Urine Yellow; Glucose Urine UA Negative (Negative); Leukocyte Esterase Urine Negative (Negative); Nitrite Urine Negative (Negative); PH 7.5 (5.0-9.0); Specific Gravity - Urine 1.015 (1.005-1.025); Urine Blood Negative (Negative); Urine Ketones Negative (Negative); Urine Protein Negative (Neg-Trace)
[2024-06-25 13:44] LABS: MANUAL DIFF FLAG NO
[2024-06-25 13:48] LABS: Basophils Percent Auto 0.6 % (0-2); Eosinophils Absolute Auto 0.5 X10*3/uL (0.0-0.4); Eosinophils Percent Auto 6.6 % (0-4); Hematocrit 41.4 % (42.0-52.0); Hemoglobin 13.9 g/dl (14.0-18.0); Imm Gran Abs Auto 0.01 X10*3/uL (0.00-0.03); Imm Gran Pct Auto 0.1 % (0.0-0.4); Lymphocytes Absolute Auto 2.5 X10*3/uL (1.2-4.9); Lymphocytes Percent Auto 35.5 % (20-40); Mean Corpuscular HGB Conc 33.6 g/dl (31.0-36.0); Mean Corpuscular Hemoglobin 31.7 pg (27.0-33.0); Mean Corpuscular Volume 94.3 fL (80.0-98.0); Mean Platelet Volume 10.8 fL (9.4-12.4); Monocytes Absolute Auto 0.6 X10*3/uL (0.1-1.2); Monocytes Percent Auto 8.7 % (2-11); Neutrophils Absolute Auto 3.5 x10*3/uL (2.0-8.3); Neutrophils Percent Auto 48.5 % (45-73); Platelet Count 197 X10*3/uL (160-400); Red Blood Count 4.39 X10*6/uL (4.60-5.80); Red Cell Distribution Width 12.8 % (11.0-16.0); White Blood Count 7.2 X10*3/uL (4.8-10.8)
[2024-06-25 13:58] LABS: Glucose Fasting 94 mg/dL (60-99)
[2024-06-25 14:35] LABS: Alanine Aminotransferase 26 U/L (0-40); Albumin Level 4.3 g/dL (3.5-5.0); Aspartate Amino Transferase 32 U/L (5-37); Bilirubin Total 1.1 mg/dL (0.0-1.0); Blood Urea Nitrogen 28 mg/dL (9-16); Calcium 9.1 mg/dL (8.4-10.2); Cholesterol 172 mg/dL (<200); Estimated Glomerular Filt Rate > 60; Glucose Fasting 96 mg/dL (60-99); HDL Cholesterol 64 mg/dL (>40); LDL Cholesterol Calculated 81 mg/dL (<100); Triglycerides 138 mg/dL (<150)
[2024-06-25 14:39] LABS: Free T4 (Free Thyroxine) 1.07 ng/dL (0.71-1.85); TSH reflex Free T4 2.31 uIU/mL (0.32-4.0); Vitamin D 25-OH Total 74.3 ng/mL (>30)
[2024-06-25 18:20] LABS: Alkaline Phosphatase 72 U/L (39-117); Anion Gap 13 (12-20); Carbon Dioxide 22 mmol/L (22-29); Chloride 109 mmol/L (96-108); Potassium 4.4 mmol/L (3.3-5.1); Sodium 140 mmol/L (135-145)
== END 2024-06-25 09:27 | disposition home or self-care (01) ==
LOC: HO.HMGCLDS 09:26
DX: E03.9 Hypothyroidism, unspecified (principal); N52.9 Male erectile dysfunction, unspecified; E78.5 Hyperlipidemia, unspecified
CPT/HCPCS: 36415; 80053; 80061; 81003; 82306; 82947; 84439; 84443; 85025

== ENCOUNTER 2024-07-04 15:24 | Outpatient (AMB) | payer MEDICARE, SELFPAY ==
[2024-07-04 15:28] VITALS: BP 140/76; PULSE 58; RESP 16; TEMP 36.9; O2SAT 99; BMI 26.1
--- NOTE | 2024-07-04 15:28 | A.OFFPC_ITS ---
Vital Signs 07/04/24 15:28 Height 6 ft Weight 192 lb 6.4 oz BMI 26.1 BP 140/76 H Blood Pressure Location Lt brachial Position Sitting Respiration 16 Pulse 58 Pulse Source Pulse Oximeter Temp 98.4 F Temp Source Oral Pulse Oximetry (%) 99 Oxygen Delivery Method Room Air Intake Visit Reasons: ELPIDIO Dr Whalen [employer] Required: No Accompanied by: Self / Same As Patient Allergies No Known Allergies Allergy (Verified 07/04/24 16:11) Medication List - Last Reconciled 07/04/24 by MANISH Boyer levothyroxine 125 mcg PO DAILY loratadine (Claritin) 10 mg PO DAILY sildenafil (Viagra) 50 mg PO DAILY PRN simvastatin 20 mg PO BEDTIME Tobacco use date assessed: 07/04/24 Fall risk assessment: No Falls in past year Last assessed Fall Risk: 07/04/24 Dental Screening Dental Screen Date: 07/04/24 Did you have a dental visit in the last 12 months?: Yes Did you have a dental problem in the last 6 months where you did not have access to dental care?: No Was dental information given to patient?: Patient has dentist HPI ELPIDIO Dr Whalen HPI Details The patient is an 84-year-old male presenting ELPIDIO from Dr. Whalen who retired. Last seen in office on 03/15/2024. Follow up on multiple chronic conditions, including borderline anemia, hypertension, and thyroid disorder. He reports stable management of these conditions with borderline anemia, not requiring immediate intervention, and a history of treated hyperthyroidism. His blood pressure has had some variability, recently recorded at 140/76, and he continues on simvastatin for hyperlipidemia management. There is a notable past history of squamous cell carcinoma with no recent recurrence after surgical excision; however, he mentions a new bump on his scalp with characteristics of a dry, raised, white scab-appearing and left and dorsal area similar white, raised area. This has not been evaluated by a breeding manager recently in is requesting to be sent a [facility]PLAC[facility] BY [facility] Medical History (Updated 07/09/24 @ 08:10 by MANISH Boyer) HTN (hypertension) History of squamous cell carcinoma of skin Erectile dysfunction Hypothyroidism Hyperlipidemia Surgical History History of dental surgery History of ear surgery History of cataract surgery Family History Father Lung cancer Mother No problems noted. Family/Other Hypertension Lung cancer Social History Housing: House Alcohol intake: current Alcohol intake frequency: holidays/special occasions only Patient Tobacco Use Status: Former Tobacco user Tobacco use type: Cigarette e-Cigarette/Vaping Use: Never Used Second Hand Smoke Exposure: No service: Yes ([employer]) Current occupational status: retired Cognitive needs: No Hearing needs: Yes (hearing aide) Vision needs: Yes (glasses) Questionnaire PHQ-9 Over the last 2 weeks, how often have you been bothered by any of the following problems? 1. Little interest or pleasure in doing things: not at all 2. Feeling down, depressed, or hopeless: not at all 3. Trouble falling or staying asleep, or sleeping too much: not at all 4. Feeling tired or having little energy: not at all 5. Poor appetite or overeating: not at all 6. Feeling bad about yourself - or that you are a failure or have let yourself or your family down: not at all 7. Trouble concentrating on things, such as reading the newspaper or watching t elevision: not at all 8. Moving or speaking so slowly that other people could have noticed. Or the opposite - being so fidgety or restless that you have been moving around a lot more than usual: not at all 9. Thoughts that you would be better off or of hurting yourself in some way: not at all Total score: 0 Depression Screening Interpretation: Negative Depression Screening Done: Yes 83612 - PHQ-9 Billing: Yes Source: Developed by Drs. Faisal Madrid, Rubina Hamilton, Evgeny Mcdonnell and colleagues, with an educational jocy from [employer]. Thrive Questionnaire Date Thrive assessed: 07/04/24 I am a: Patient What is your living situation today?: I have a steady place to live Within the past 12 months, did the food you bought not last and you didn't have the money to get more?: Never true Within the past 12 months, did you worry whether your food would run out before you got money to buy more?: Never true Do you have trouble paying for medicines?: No Do you have trouble getting transportation to medical appointments?: No Do you have trouble paying your heating and electricity bill?: No Do you have trouble taking care of your child, family member or friend?: No Do you have trouble with day-to-day activities such as bathing, preparing meals, shopping, managing finances, etc.?: No Are you currently unemployed and looking for a job?: No Are you interested in more education?: No Please select the resources that you would like help with: None Currently or been in a relationship where the following occur: No concerns reported THRIVE Score: 0 AUDIT C Alcohol Use Questionnaire (AUDIT-C) 1. How often do you have a drink containing alcohol?: 2-4 times a month Total Score: 2 Score Reviewed/Action Taken: No ALEE-7 AMB Questionnaire ALEE-7 Date ALEE - 7 assessed: 07/04/24 Feeling nervous, anxious, or on edge: 0 = Not at all Not being able to stop or control worryin = Not at all Worrying too much about different things: 0 = Not at all Trouble relaxin = Not at all Being so restless that it is hard to sit still: 0 = Not at all Becoming easily annoyed or irritable: 0 = Not at all Feeling afraid as if something awful might happen: 0 = Not at all Total ALEE-7 score (0-4 normal; 5-9 mild; 10-14 moderate; 15-21 severe): 0 Source: Developed by Drs. Faisal Madrid, Rubina Hamilton, Evgeny Mcdonnell and colleagues, with an educational jocy from [employer]. ALEE-7 Assessment Billing ALEE-7 Assessment Tool: ALEE-7 Assessment 11350 Review of Systems Const Denies headache(s) Eyes Denies loss of vision ENT Denies vertigo, Denies dizziness, Denies headache(s) and Denies sore throat Card Denies chest pain, Denies leg edema and Denies lightheadedness Resp Denies cough, Denies hemoptysis and Denies wheezing GI Denies abdominal pain, Denies melena, Denies constipation, Denies diarrhea and Denies vomiting Denies dysuria, Denies urinary frequency and Denies urinary urgency Musc Denies arthralgias, Denies joint swelling, Denies numbness and Denies tingling Skin/Breast Reports other (Reoccurring skin lesions) Neuro Denies Abnormal speech present, Denies behavioral changes, Denies vertigo, Denies dizziness, Denies headache(s), Denies loss of vision, Denies memory loss, Denies numbness and Denies tingling Psych Denies anxiety, Denies behavioral changes, Denies depression, Denies memory loss and Denies panic attacks Shay/Lymph Denies easy bleeding and Denies easy bruising Aller/Immun Denies wheezing Physical exam (Primary Care) Vital Signs: Last Vital Signs Temp 98.4 F 07/04/24 15:28 Pulse 58 07/04/24 15:28 Resp 16 07/04/24 15:28 BP 140/76 H 07/04/24 15:28 Pulse Ox 99 07/04/24 15:28 Oxygen Delivery Method Room Air 07/04/24 15:28 BMI result Body Mass Index 26.1 Tobacco/Smoking Status: Tobacco use Status Tobacco use date assessed 07/04/24 07/04/24 15:38 Patient Tobacco Use Status Former Tobacco user 07/04/24 15:38 Tobacco use type Cigarette 07/04/24 15:38 e-Cigarette/Vaping Use Never Used 07/04/24 15:38 PHQ-9: PHQ-9 Score PHQ-9: Total score 0 07/04/24 16:33 Depression Screening Interpretation: Negative Thrive Assessment: Date of Thrive Assessment Date Thrive assessed 07/04/24 07/04/24 15:38 Currently or been in a relationship where the following occur: No concerns reported Const General: healthy appearing, no acute distress, alert and awake Nutritional Appearance: well nourished Orientation/consciousness: oriented to person, oriented to place and oriented to time HENMT Ears: TM's normal bilaterally General nose exam: Normal nasal mucous membranes and turbinates present Eyes Conjunctivae: conjunctivae normal Sclerae: sclerae normal Pupils: Equal, round and reactive pupils present Neck Neck: Yes no lymphadenopathy and Yes no JVD Thyroid: Thyroid normal Carotids: no bruits Resp Effort & Inspection: normal respiratory effort and not tachypneic Auscultation: no crackles, no rales, no rhonchi and no wheezes Cardio Rate: regular rate Rhythm: regular rhythm Heart sounds: no murmurs and normal S1 and S2 GI Palpation (GI): Soft to palpation, nontender, no hepatomegaly and no splenomegaly Auscultation: normal bowel sounds Skin General skin exam: dry skin Lesions: lesion noted (White scabbed ill-appearing areas (scalp, left dorsal hand)) Neuro General: oriented to person, oriented to place and oriented to time Cranial nerves: Yes Equal, round and reactive pupils present Speech: No Abnormal speech present Gait exam (Neuro): Normal gait present Motor exam (neuro): no tremor noted Extrem Right upper extremity: full ROM Left upper extremity: full ROM Right lower extremity: full ROM; no edema Left lower extremity: full ROM; no edema Psych Mental Status: mental status grossly normal Speech and movement: Normal speech and movement present Affect: normal affect Attitude: cooperative Thought process: Normal thought process present Results Reviewed Results Reviewed: Laboratory Tests 06/25/24 06/25/24 10:00 10:08 WBC 7.2 RBC 4.39 L Hgb 13.9 L Hct 41.4 L MCV 94.3 MCH 31.7 MCHC 33.6 RDW 12.8 Plt Count 197 Sodium 140 Potassium 4.4 Chloride 109 H Carbon Dioxide 22 Anion Gap 13 BUN 28 H Creatinine 0.86 Estimated GFR > 60 Fasting Glucose 94 Calcium 9.1 Total Bilirubin 1.1 H AST 32 ALT 26 Alkaline Phosphatase 72 Total Protein 7.0 Albumin 4.3 Triglycerides 138 Cholesterol 172 LDL Cholesterol, Calc 81 HDL Cholesterol 64 25-OH Vitamin D Total 74.3 TSH 2.31 Free T4 1.07 Laboratory Tests 06/25/24 10:05 Urine Color Yellow Urine Appearance Clear Urine pH 7.5 Ur Specific [place] 1.015 Urine Protein Negative Urine Glucose (UA) Negative Urine Ketones Negative Urine Blood Negative Urine Nitrite Negative Ur Leukocyte Esterase Negative Coding Level of Care Code Est Pt Level 4 (60763) Diagnoses Hypothyroidism, unspecified type E03.9 Hypothyroidism type: unspecified Pure hypercholesterolemia E78.00 Hyperlipidemia type: pure hypercholesterolemia History of squamous cell carcinoma of skin Z85.828 Anemia, unspecified type D64.9 Anemia type: unspecified type Hypertension, unspecified type I10 Hypertension type: unspecified Additional Codes ALEE-7 Assessment Billing - ALEE-7 Assessment Tool: ALEE-7 Assessment 57730 ([id number]) PHQ-9 - 81611 - PHQ-9 Billing: Yes ([id number]) Time Spent (min) 36 Assessment & Plan Assessment & Plan (1) Hypothyroidism: Code(s): E03.9 - Hypothyroidism, unspecified Category: Medical Qualifiers: Hypothyroidism type: unspecified Qualified Code(s): E03.9 - Hypothyroidism, unspecified Plan: Euthyroid labs. Continue levothyroxine 125 mcg daily (2) Hyperlipidemia: Code(s): E78.5 - Hyperlipidemia, unspecified Category: Medical Qualifiers: Hyperlipidemia type: pure hypercholesterolemia Qualified Code(s): E78.00 - Pure hypercholesterolemia, unspecified Plan: Cholesterol normal on labs Reinforced low-cholesterol diet and activity as tolerated Continue simvastatin 20 mg daily at bedtime (3) History of squamous cell carcinoma of skin: Code(s): Z85.828 - Personal history of other malignant neoplasm of skin Category: Medical Plan: History of squamous cell carcinoma of the skin. Concerned about small raised white area scabbed appearing on the scalp and off the left dorsal hand. Patient is requesting for a referral to [facility] (4) Anemia: Code(s): D64.9 - Anemia, unspecified Category: Medical Qualifiers: Anemia type: unspecified type Qualified Code(s): D64.9 - Anemia, unspecified Plan: Continue to be slightly anemic. Stable, we will check B12 and folate on next labs to further evaluate (5) HTN (hypertension): Code(s): I10 - Essential (primary) hypertension Category: Medical Qualifiers: Hypertension type: unspecified Qualified Code(s): I10 - Essential (primary) hypertension Plan: Blood pressure 140/76 in office Encouraged dash diet The patient is not on on any treatment for his blood pressure at this time. We will continue to monitor Plan Patient to return in 4 months. Preordered labs to be completed prior to appointment Orders: Orders Lipid Panel 4 Months E03.9 - Hypothyroidism, unspecified, E78.5 - Hyperlipide christiana, unspecified UA CC w/rflx Micro + Cult 4 Months E03.9 - Hypothyroidism, unspecified, E78.5 - Hyperlipidemia, unspecified Vitamin D 25-OH Total 4 Months E03.9 - Hypothyroidism, unspecified, E78.5 - Hyperlipidemia, unspecified Glucose Fasting 4 Months E03.9 - Hypothyroidism, unspecified, E78.5 - Hyperlipidemia, unspecified Vitamin B12 and Folate 4 Months D64.9 - Anemia, unspecified Complete Blood Count Auto Diff 4 Months E03.9 - Hypothyroidism, unspecified, E 78.5 - Hyperlipidemia, unspecified Comprehensive [place]. Panel Fast 4 Months E03.9 - Hypothyroidism, unspecified, E78.5 - Hyperlipidemia, unspecified TSH reflex Free T4 4 Months E03.9 - Hypothyroidism, unspecified, E78.5 - Hyperlipidemia, unspecified Free T4 (Free Thyroxine) 4 Months E03.9 - Hypothyroidism, unspecified Referrals Dermatology Referral Z85.828 - Personal history of other malignant neoplasm of skin
== END 2024-07-04 16:38 | disposition home or self-care (01) ==
LOC: HO.HMCH 15:25
DX: E03.9 Hypothyroidism, unspecified (principal); E78.00 Pure hypercholesterolemia, unspecified; Z85.828 Personal history of other malignant neoplasm of skin; D64.9 Anemia, unspecified; I10 Essential (primary) hypertension

== ENCOUNTER → 2024-07-04 15:24 | Outpatient (BNVA) | payer MEDICARE, SELFPAY | DX: I10 Essential (primary) hypertension (principal); E03.9 Hypothyroidism, unspecified; E78.00 Pure hypercholesterolemia, unspecified; D64.9 Anemia, unspecified; Z85.828 Personal history of other malignant neoplasm of skin | CPT/HCPCS: 96127; 99212 ==

== ENCOUNTER 2024-10-31 08:45 | Outpatient (REF) | payer MEDICARE, SELFPAY ==
--- OUTSIDE RECORDS SUMMARY | 2024-10-31 09:50 | XMS_ITS | Patient Health Record ---
Author Organization [facility] Address [address] [place] [address] Care Team Providers Care Padder Name Role Phone Cecil Whalen MD Primary Care Provider Deanna Michael Unavailable [phone] Reason For Referral No Information Medications Medication SIG (Take, Route, Frequency, Duration) Notes Start Date End Date Status Simvastatin 20 MG 1 tablet in the even ing Orally Once a day Active Levothyroxine Sodium 75 MCG 1 tablet Ora lly Once a day Active Claritin 10 MG 1 tablet Orally Once a day/prn Active Problems Problem Type SNOMED Code ICD Code Onset Dates Problem Status W/U Status Risk Notes Problem [id number] Encounter for screening for malignant neoplasm of colon (Z12.11) Active confirmed Problem 985373186 History of adenomatous polyp of colon (Z86.010) Active confirmed Problem Screening for malignant neoplasm of rectum (892083738) Encounter for screening for malignant neoplasm of rectum (Z12.12) Active confirmed Problem [id number] Preprocedural examination (Z01.818) Active confirmed Plan Of Treatment Future Test Test Name Order Date COLONOSCOPY 08/25/2015 Insurance Providers Payer Name Payer Address Payer Phone Subscriber Number Group Number Insured Name Patient Relationship to Insured Coverage Start Date Coverage End Date [facility] [address] [place], [place] [id number] DEANNA ALONZO Self - patient is the insured Medical (General) History Medical History History ICD Code Screening colonoscopy 010--1 small tubular adenoma removed, sigmoid diverticulosis, small internal hemorrhoids Hyperlipidemia Hypothyroidism Denies [place],DM,CVA,Lung disease,renal dise ase
[2024-10-31 10:16] LABS: MANUAL DIFF FLAG NO
[2024-10-31 10:19] LABS: Hematocrit 41.0 % (42.0-52.0); Hemoglobin 13.7 g/dl (14.0-18.0); Imm Gran Abs Auto 0.02 X10*3/uL (0.00-0.03); Imm Gran Pct Auto 0.3 % (0.0-0.4); Lymphocytes Absolute Auto 2.3 X10*3/uL (1.2-4.9); Mean Corpuscular HGB Conc 33.4 g/dl (31.0-36.0); Mean Corpuscular Hemoglobin 31.8 pg (27.0-33.0); Mean Corpuscular Volume 95.1 fL (80.0-98.0); NRBC Abs Auto 0.000 X10*3/uL (0.0-0.012); NRBC Pct Auto 0.0 /100WBC (0.0-0.2); Platelet Count 212 X10*3/uL (160-400); Red Blood Count 4.31 X10*6/uL (4.60-5.80); White Blood Count 6.6 X10*3/uL (4.8-10.8)
[2024-10-31 10:51] LABS: Appearance Urine Clear; Glucose Urine UA Negative (Negative); PH 7.0 (5.0-9.0); Specific Gravity - Urine 1.020 (1.005-1.025); UMIC TRIGGER UACC YES
[2024-10-31 11:47] LABS: Alanine Aminotransferase 27 U/L (0-40); Albumin Level 4.6 g/dL (3.5-5.0); Alkaline Phosphatase 80 U/L (39-117); Anion Gap 15 (12-20); Aspartate Amino Transferase 29 U/L (5-37); Blood Urea Nitrogen 27 mg/dL (9-16); Calcium 9.3 mg/dL (8.4-10.2); Carbon Dioxide 25 mmol/L (22-29); Chloride 108 mmol/L (96-108); Cholesterol 168 mg/dL (<200); Estimated Glomerular Filt Rate > 60; HDL Cholesterol 58 mg/dL (>40); Potassium 4.5 mmol/L (3.3-5.1); Sodium 143 mmol/L (135-145); Total Protein 7.2 g/dL (6.5-8.0); Triglycerides 118 mg/dL (<150)
[2024-10-31 12:06] LABS: Free T4 (Free Thyroxine) 1.07 ng/dL (0.71-1.85)
[2024-10-31 12:14] LABS: Folate 13.7 ng/mL (> or = 4.0); Vitamin B12 389 pg/mL (200-900)
== END 2024-10-31 08:46 | disposition home or self-care (01) ==
LOC: HO.HMGCLDS 08:45
DX: E78.5 Hyperlipidemia, unspecified (principal); E03.9 Hypothyroidism, unspecified; D64.9 Anemia, unspecified
CPT/HCPCS: 36415; 80053; 80061; 81001; 82306; 82607; 82746; 84439; 84443; 85025

== ENCOUNTER 2024-11-05 10:03 | Outpatient (AMB) | payer MEDICARE, SELFPAY ==
[2024-11-05 10:06] VITALS: BP 126/60; PULSE 68; RESP 18; TEMP 36.3; O2SAT 95; BMI 26.0
--- NOTE | 2024-11-05 10:06 | A.OFFPC_ITS ---
Vital Signs 11/05/24 10:06 Height 6 ft Weight 191 lb 6 oz BMI 26.0 BP 126/60 Blood Pressure Location Lt brachial Position Sitting Respiration 18 Pulse 68 Pulse Source Pulse Oximeter Temp 97.3 F Temp Source Temporal Artery Scan Pulse Oximetry (%) 95 Oxygen Delivery Method Room Air Intake Visit Reasons: hypothyroidism [place] Rider Required: No Accompanied by: Self / Same As Patient Allergies No Known Allergies Allergy (Verified 11/05/24 10:20) Medication List - Last Reconciled 11/05/24 by MANISH Boyer levothyroxine 125 mcg PO DAILY loratadine (Claritin) 10 mg PO DAILY sildenafil (Viagra) 50 mg PO DAILY PRN simvastatin 20 mg PO BEDTIME Tobacco use date assessed: 11/05/24 Fall risk assessment: No Falls in past year Last assessed Fall Risk: 11/05/24 Dental Screening Dental Screen Date: 11/05/24 Did you have a dental visit in the last 12 months?: Yes Did you have a dental problem in the last 6 months where you did not have access to dental care?: No Was dental information given to patient?: Patient has dentist HPI hypothyroidism HPI Details The patient is an 84-year-old male presenting for follow up appointment. He is here with anemia and heartburn. The anemia has been stable with no significant changes, and prior evaluations of folic acid and B12 levels due to macrocytic presentation, were normal. Hence, plans to check iron levels in the next set of labs to rule out iron deficiency as a cause of the patient anemia. The patient experiences heartburn approximately once a week, potentially related to dietary factors such as coffee and spicy foods. He occasionally takes Tums for relief, encouraged to continue monitoring to for determination of further interventions. The patient has a history of kidney stones and consumes lemonade nightly as a preventative measure. This regimen is maintained to prevent recurrence of kidney stones, despite the potential contribution to heartburn. [facility] Medical History HTN (hypertension) History of squamous cell carcinoma of skin Erectile dysfunction Hypothyroidism Hyperlipidemia Surgical History History of dental surgery History of ear surgery History of cataract surgery Family History Father Lung cancer Mother No problems noted. Family/Other Hypertension Lung cancer Social History Housing: House Alcohol intake: current Alcohol intake frequency: holidays/special occasions only Patient Tobacco Use Status: Former Tobacco user Tobacco use type: Cigarette e-Cigarette/Vaping Use: Never Used Second Hand Smoke Exposure: No service: Yes ([employer]) Current occupational status: retired Cognitive needs: No Hearing needs: Yes (hearing aide) Vision needs: Yes (glasses) Questionnaire Thrive Questionnaire Date Thrive assessed: 06/27/24 I am a: Patient What is your living situation today?: I have a steady place to live Within the past 12 months, did the food you bought not last and you didn't have the money to get more?: Never true Within the past 12 months, did you worry whether your food would run out before you got money to buy more?: Never true Do you have trouble paying for medicines?: No Do you have trouble getting transportation to medical appointments?: No Do you have trouble paying your heating and electricity bill?: No Do you have trouble taking care of your child, family member or friend?: No Do you have trouble with day-to-day activities such as bathing, preparing meals, shopping, managing finances, etc.?: No Are you currently unemployed and looking for a job?: No Are you interested in more education?: No Please select the resources that you would like help with: None Currently or been in a relationship where the following occur: No concerns reported THRIVE Score: 0 ALEE-7 AMB Questionnaire ALEE-7 Date ALEE - 7 assessed: 07/04/24 Source: Developed by Drs. Faisal Madrid, Rubina Hamilton, Evgeny Mcdonnell and colleagues, with an educational jocy from [employer]. Review of Systems Const Denies body aches, Denies chills, Denies fever(s), Denies headache(s) and Denies poor appetite Eyes Reports no additional complaints ENT Denies dysphagia, Denies dizziness, Denies headache(s) and Denies odynophagia Card Denies chest pain, Denies syncope, Denies edema, Denies irregular heart rhythm, Denies lightheadedness and Denies dyspnea Resp Denies cough and Denies dyspnea GI Denies abdominal pain, Denies constipation, Denies dysphagia, Denies diarrhea, Denies nausea, Denies odynophagia and Denies vomiting Reports no additional complaints Musc Reports no additional complaints and Denies abnormal gait Skin/Breast Reports system reviewed and no additional complaints, except as documented Neuro Denies abnormal gait, Denies dizziness, Denies syncope and Denies headache(s) Psych Reports no additional complaints Physical exam (Primary Care) Vital Signs: Last Vital Signs Temp 97.3 F 11/05/24 10:06 Pulse 68 11/05/24 10:06 Resp 18 11/05/24 10:06 BP 126/60 11/05/24 10:06 Pulse Ox 95 11/05/24 10:06 Oxygen Delivery Method Room Air 11/05/24 10:06 BMI result Body Mass Index 26.0 Tobacco/Smoking Status: Tobacco use Status Tobacco use date assessed 11/05/24 11/05/24 10:15 Patient Tobacco Use Status Former Tobacco user 11/05/24 10:15 Tobacco use type Cigarette 11/05/24 10:15 e-Cigarette/Vaping Use Never Used 11/05/24 10:15 Thrive Assessment: Date of Thrive Assessment Date Thrive assessed 06/27/24 11/05/24 10:15 Currently or been in a relationship where the following occur: No concerns reported Const General: cooperative, healthy appearing, comfortable and no acute distress Orientation/consciousness: patient oriented x3 HENMT Head: Yes normocephalic Ears: hearing grossly normal bilaterally General nose exam: Normal external nose present Eyes General: appearance normal, both eyes and all related structures Conjunctivae: conjunctivae normal Neck Neck: Yes full ROM and Yes no lymphadenopathy Resp Effort & Inspection: normal respiratory effort Auscultation: clear to auscultation bilaterally, no crackles, no rales, no rhonchi and no wheezes Cardio Rate: regular rate Rhythm: regular rhythm Skin General skin exam: no rashes or lesions noted Neuro General: patient oriented x3 Gait exam (Neuro): Normal gait present Extrem General: Yes normal to inspection, Yes full ROM and No edema Psych Affect: normal affect Attitude: cooperative Insight: Good insight present (Psych) Judgement: Good judgement present (Psych) Results Reviewed Results Reviewed: Laboratory Tests 10/31/24 09:25 WBC 6.6 RBC 4.31 L Hgb 13.7 L Hct 41.0 L MCV 95.1 MCH 31.8 MCHC 33.4 RDW 12.6 Plt Count 212 Sodium 143 Potassium 4.5 Chloride 108 Carbon Dioxide 25 Anion Gap 15 BUN 27 H Creatinine 1.07 Estimated GFR > 60 Fasting Glucose 94 Calcium 9.3 Total Bilirubin 1.5 H AST 29 ALT 27 Alkaline Phosphatase 80 Total Protein 7.2 Albumin 4.6 Triglycerides 118 Cholesterol 168 LDL Cholesterol, Calc 87 HDL Cholesterol 58 Vitamin B12 389 25-OH Vitamin D Total 40.2 Folate 13.7 TSH 1.56 Free T4 1.07 Urine Color Yellow Urine Appearance Clear Urine pH 7.0 Ur Specific [place] 1.020 Urine Protein Trace Urine Glucose (UA) Negative Urine Ketones Negative Urine Blood Negative Urine Nitrite Negative Ur Leukocyte Esterase Trace H Urine RBC 0-2 Urine WBC 0-5 Ur Squamous Epith Cells 0-2 Urine Bacteria None Seen Hyaline Casts 0-2 Coding Level of Care Code Est Pt Level 4 (21828) Diagnoses Hypothyroidism, unspecified type E03.9 Hypothyroidism type: unspecified Pure hypercholesterolemia E78.00 Hyperlipidemia type: pure hypercholesterolemia Anemia, unspecified type D64.9 Anemia type: unspecified type Hypertension, unspecified type I10 Hypertension type: unspecified Time Spent (min) 39 Assessment & Plan Assessment & Plan (1) Hypothyroidism: Code(s): E03.9 - Hypothyroidism, unspecified Category: Medical Qualifiers: Hypothyroidism type: unspecified Qualified Code(s): E03.9 - Hypothyroidism, unspecified Plan: Euthyroid labs. Continue levothyroxine 125 mcg daily (2) Hyperlipidemia: Code(s): E78.5 - Hyperlipidemia, unspecified Category: Medical Qualifiers: Hyperlipidemia type: pure hypercholesterolemia Qualified Code(s): E78.00 - Pure hypercholesterolemia, unspecified Plan: Triglycerides 118, total cholesterol 168, LDL 87, HDL 58 Reinforced low-cholesterol diet and activity as tolerated Continue simvastatin 20 mg daily at bedtime (3) Anemia: Code(s): D64.9 - Anemia, unspecified Category: Medical Qualifiers: Anemia type: unspecified type Qualified Code(s): D64.9 - Anemia, unspecified Plan: Mild microcytic anemia. B12 and folate are within normal limits. We will add an iron panel on follow up labs to further evaluate. (4) HTN (hypertension): Code(s): I10 - Essential (primary) hypertension Category: Medical Qualifiers: Hypertension type: unspecified Qualified Code(s): I10 - Essential (primary) hypertension Plan: Blood pressure 126/16 office-within goal Encouraged dash diet The patient is not on on any treatment for his blood pressure at this time. We will continue to monitor Plan Patient to return in 4 months. Preordered labs to be completed prior to appointment Orders: Orders Complete Blood Count Auto Diff 4 Months D64.9 - Anemia, unspecified, E03.9 - Hypothyroidism, unspecified, E78.00 - Pure hypercholesterolemia, unspecified, I10 - Essential (primary) hypertension Comprehensive [place]. Panel Fast 4 Months D64.9 - Anemia, unspecified, E03.9 - Hypothyroidism, unspecified, E78.00 - Pure hypercholesterolemia, unspecified, I10 - Essential (primary) hypertension Lipid Panel 4 Months D64.9 - Anemia, unspecified, E03.9 - Hypothyroidism, unspecified, E78.00 - Pure hypercholesterolemia, unspecified, I10 - Essential (primary) hypertension Vitamin D 25-OH Total 4 Months D64.9 - Anemia, unspecified, E03.9 - Hypothyroidism, unspecified, E78.00 - Pure hypercholesterolemia, unspecified, I10 - Essential (primary) hypertension Free T4 (Free Thyroxine) 4 Months D64.9 - Anemia, unspecified, E03.9 - Hypothyroidism, unspecified, E78.00 - Pure hypercholesterolemia, unspecified, I10 - Essential (primary) hypertension UA CC w/rflx Micro + Cult 4 Months D64.9 - Anemia, unspecified, E03.9 - Hypothyroidism, unspecified, E78.00 - Pure hypercholesterolemia, unspecified, I10 - Essential (primary) hypertension TSH reflex Free T4 4 Months D64.9 - Anemia, unspecified, E03.9 - Hypothyroidism, unspecified, E78.00 - Pure hypercholesterolemia, unspecified, I10 - Essential (primary) hypertension
--- OUTSIDE RECORDS SUMMARY | 2024-11-05 13:10 | XMS_ITS | Patient Health Record ---
Author Organization [facility] Address [address] [place] [address] Care Team Providers Care Fire Sprinkler Inspector Name Role Phone Cecil Whalen MD Primary Care Provider Deanna Michael Unavailable [phone] Reason For Referral No Information Medications Medication [...] Problem Status W/U Status Risk Notes Problem [id number] Encounter for screening for malignant neoplasm of colon (Z12.11) Active confirmed Problem [id number] History of adenomatous polyp of colon (Z86.010) Active confirmed Problem Screening for malignant neoplasm of rectum (801775140) Encounter for screening for malignant neoplasm of rectum (Z12.12) Active confirmed Problem [id number] Preprocedural examination (Z01.818) Active confirmed Plan Of Treatment Future Test Test Name Order Date COLONOSCOPY 08/25/2015 Insurance Providers Payer Name Payer Address Payer Phone Subscriber Number Group Number Insured Name Patient Relationship to Insured Coverage Start Date Coverage End Date [facility] [address] [place], [place] [id number] DEANNA ALONZO Self - patient is the insured Medical (General) History Medical History History ICD Code Screening colonoscopy 010--1 small tubular adenoma removed, sigmoid diverticulosis, small internal hemorrhoids Hyperlipidemia Hypothyroidism Denies IA,DM,CVA,Lung disease,renal dise ase
== END 2024-11-05 10:43 | disposition home or self-care (01) ==
LOC: HO.HMCH 10:04
DX: E03.9 Hypothyroidism, unspecified (principal); E78.00 Pure hypercholesterolemia, unspecified; D64.9 Anemia, unspecified; I10 Essential (primary) hypertension

== ENCOUNTER → 2024-11-05 10:03 | Outpatient (BNVA) | payer MEDICARE, SELFPAY | DX: I10 Essential (primary) hypertension (principal); E03.9 Hypothyroidism, unspecified; R12 Heartburn; D64.9 Anemia, unspecified; E78.00 Pure hypercholesterolemia, unspecified; Z87.442 Personal history of urinary calculi | CPT/HCPCS: 99212 ==